=== PATIENT | male | born 2000 | race Two or more races ===

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

== ENCOUNTER 2025-03-20 20:18 | Emergency (ER) | payer BC, OTHER ==
[~2025-03-20] VITALS: Ht 180.3 cm; Wt 103.4 kg
--- NOTE | 2025-03-20 23:58 | ED.PDOC ---
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 PT A&OX4, VSS, RR EVEN AND UNLABORED ON RA.. DENIES NUMBNESS OR WEAKNESS. Chief Complaint: Laceration Time Seen by MD: 20:22 Primary Care Provider: UNKNOWN Reviewed Notes: Nurses Notes, Medications, Allergies Allergies: Coded Allergies: Amoxicillin (Verified Allergy, 04/13/12) Home Meds Active Scripts Amoxicillin & Pot Clavulanate (AUGMENTIN TABLET) 875 Mg Tb, 875 MG PO BID for 5 Days, #10 TAB Prov:STEFANO POWERS EFFICIENCY MANAGER 03/20/25 Information Source: Patient Mode of Arrival: Ambulatory Complexity: Intermediate Laceration Length (cm): 2 Past Medical History PAST MEDICAL HISTORY: Denies Surgical History: Denies all surgeries Family History Family History: Unknown Social History Smoker: Non-Smoker Alcohol: Denies ETOH Use Drugs: Denies Drug Use Lives In: Home Constitutional: denies: chills, diaphoresis, fatigue, fever, malaise, sweats, weakness, others EENTM: denies: blurred vision, double vision, ear bleeding, ear discharge, ear drainage, ear pain, ear ringing, eye pain, eye redness, hearing loss, mouth pain, mouth swelling, nasal discharge, nose bleeding, nose congestion, nose pain, photophobia, tearing, throat pain, throat swelling, voice changes, others Respiratory: denies: cough, hemoptysis, orthopnea, SOB at rest, shortness of breath, SOB with excertion, stridor, wheezing, others Cardiovascular: denies: chest pain, dizzy spells, diaphoresis, Dyspnea on exertion, edema, irregular heart beat, left arm pain, lightheadedness, palpitations, PND, syncope, others Gastrointestinal: denies: abdomen distended, abdominal pain, blood streaked bowels, constipated, diarrhea, dysphagia, difficulty swallowing, hematemesis, melena, nausea, poor appetite, poor fluid intake, rectal bleeding, rectal pain, vomiting, others Genitourinary: denies: burning, dysuria, flank pain, frequency, hematuria, incontinence, penile discharge, penile sore, pain, testicle pain, testicle swell ing, urgency, others Neurological: denies: dizziness, fainting, headache, left sided numbness, left sided weakness, numbness, paresthesia, pre-existing deficit, right sided numbness, right sided weakness, seizure, speech problems, tingling, tremors, weakness, others Musculoskeletal: denies: back pain, gout, joint pain, joint swelling, muscle pain, muscle stiffness, neck pain, others Integumetry: reports: laceration (BULGING TO RIGHT HAND LITTLE FINGER); denies: bruises, change in color, change in hair/nails, dryness, lesions, lumps, rash, wounds, others Allergic/Immunocompromised: denies: Difficulty Healing, Frequent Infections, Hives, Itching, others Hematologic/Lymphatic: denies: anemia, blood clots, easy bleeding, easy bruising, swollen glands, others Endocrine: denies: excessive hunger, excessive sweating, excessive thirst, excessive urination, flushing, intolerance to cold, intolerance to heat, unexplained weight gain, unexplained weight loss, others Psychiatric: denies: anxiety, bipolar disorder, depression, hopeless, panic disorder, schizophrenia, sleepless, suicidal, others Physical Exam General Appearance: No Apparent Distress, Normal HEENT: Pharynx Normal Neck: Full Range of Motion, Non-Tender Respiratory: Lungs Clear, No Respiratory Distress, Normal Breath Sounds Cardiovascular: No Murmur, Normal Peripheral Pulses, Regular Rate/Rhythm Breast Exam: Deferred Gastrointestinal: Non Tender, Soft Genitalia: Deferred Pelvic: Deferred Rectal: Deferred Extremities: Normal capillary refill, Normal inspection, Normal range of motion, Non-tender, No pedal edema Musculoskeletal : Apperance: Normal Neurologic: Alert, public relations professional II-XII nml as Tested, No Motor Deficits, Normal Affect, Normal Mood, No Sensory Deficits Cerebellar Function: Normal Reflexes: Normal Skin: Dry, Lacerations (1 IN AVULSION TO RIGHT HAND 5TH DIGIT LATERAL ASPECT DRESSING REMOVED CONTINUES TO BLEED SENSORY MOTION INTACT CAP REFILL LESS THAN 3 SECONDS), Normal Color, Warm Lymphatic: No Adenopathy Was a procedure done? Was a procedure done?: Yes Sedation Sedation?: No Informed consent obtained: Yes Laceration Repair : Location FIFTH DIGIT RIGHT HAND Length 1 IN Anesthetic: Nothing Laceration Repair Prep: Saline, by Irrigation Laceration Repair Wound Comple: epidermis/dermis repair Laceration Repair: Gauze Informed consent obtained: Yes Risks, benefits, and alternati: Yes Notes SURGICEL APPLIED ALONG WITH COMPRESSION DRESSING BLEEDING CONTROLLED PATIENT T OLERATED WELL MINIMAL BLOOD LOSS Differential diagnosis Generic Laceration: Hematoma, Retained Foriegn Body, Abrasion/Contusion, Avulsion X-Ray, Labs, Meds, VS Vital Signs Date Time Temp Pulse Resp B/P (MAP) Pulse Ox O2 Delivery O2 Flow Rate FiO2 03/20/25 20:30 98.1 88 14 140/95 (110) 97 98.1 X-Ray, Labs, Meds, VS Comment SEE PROCEDURE NOTE. SCRIPT PROPHYLACTIC ANTIBIOTICS X5 DAYS ADVISED TAKE MEDICATION PRESCRIBED SIDE EFFECTS DISCUSSED. DRESSING ON FOR 24-48 HOURS KEEP DRY. FOLLOW UP WITH YOUR PCP URGENT CARE OR BACK HERE IN THE ER FOR RE- EVALUATION 2 DAYS. ER RETURN PRECAUTIONS GIVEN FOR UNCONTROLLED BLEEDING OR SIGNS AND SYMPTOMS OF INFECTION. PATIENT INDICATES UNDERSTANDING AND AGREES WITH DISCHARGE PLAN OF CARE. Time of 1ST Reevaluation: 23:00 Reevaluation 1ST: Unchanged Time of 2ND Reevaluation: 23:50 Reevaluation 2ND: Improved Patient Education/Counseling: Diagnosis, Treatment, Prognosis, Need For Follow Up Family Education/Counseling: No Family Present Departure 1 Departure Time of Disposition: 23:57 Impression: Primary Impression: Avulsion of finger Qualified Codes: S61.209A - Unspecified open wound of unspecified finger without damage to nail, initial encounter Disposition: HOME / SELF CARE / HOMELESS Condition: Stable e-Prescriptions Amoxicillin & Pot Clavulanate (AUGMENTIN TABLET) 875 Mg Tb 875 MG PO BID for 5 Days, #10 TAB Prov: STEFANO POWERS 03/20/25 Discharged With: Self Critical Care Note Critical Care Time?: No Stability Stability form required: STEFANO Chand March 20, 2025 23:58
[2025-03-20] MEDS ORDERED: AUG875T PO (23:59)
[2025-03-21 00:27] VITALS: BP 153/89; PULSE 68; RESP 18; TEMP 98.4; O2SAT 100
[2025-03-21] MEDS ORDERED: DOXY100C4 PO (00:41)
== END 2025-03-21 00:29 | disposition home or self-care (01) ==
LOC: ER 20:18
DX: S61.309A Unspecified open wound of unspecified finger with damage to nail, initial encounter (principal); Z88.0 Allergy status to penicillin; W26.9XXA Contact with unspecified sharp object(s), initial encounter; Y93.89 Activity, other specified; Y92.009 Unspecified place in unspecified non-institutional (private) residence as the place of occurrence of the external cause; Y99.8 Other external cause status